=== PATIENT | female | born 1950 | race Caucasian/White ===

== ENCOUNTER 2018-11-14 13:59 | Emergency (ER) | payer MEDICARE ==
[~2018-11-14] VITALS: Ht 160 cm; Wt 99.8 kg
[~2018-11-14 13:59] MED LIST: BUME2 PO; CYCL10; FLUR100; GLIM2 PO; GLYMET5; LORA1; LOSA50 PO; LOSHYD; META800; OXYACE10; PARO10 PO; PARO20; PIOG30; POTCHL20ER PO; PRAV20 PO; RAMI5
[2018-11-14] MEDS ORDERED: OMEPRAZOLE MAGN20 MG PO (15:24)
[2018-11-14] MEDS ORDERED: CYAN500 PO (15:32)
[2018-11-14] MEDS ORDERED: VITAMIN D35000 UNI1 PO (15:34)
[2018-11-14] MEDS ORDERED: Co Q-10300 MG PO (15:35)
[2018-11-14] MEDS ORDERED: CALCIUM CITRAT1 EAC4 PO (15:36)
[2018-11-14] MEDS ORDERED: THERA1 EACH PO (15:37)
[2018-11-14 16:25] LABS: BASOPHILS ABSOLUTE AUTO 0.02 K/mm3 (0.00-0.23); BASOPHILS PERCENT AUTO 0 % (0-2); EOSINOPHILS PERCENT AUTO 0 % (0-6); Hematocrit 37.9 % (33.0-51.0); Hemoglobin 12.1 g/dL (11.5-16.0); IMMATURE GRAN ABSOLUTE AUTO 0.09 K/mm3 (0.00-0.10); IMMATURE GRAN PERCENT AUTO 1 % (0-1); LYMPHOCYTES ABSOLUTE AUTO 1.18 K/mm3 (0.84-5.20); LYMPHOCYTES PERCENT AUTO 10 % (21-46); MONOCYTES ABSOLUTE AUTO 0.38 K/mm3 (0.16-1.47); MONOCYTES PERCENT AUTO 3 % (4-13); Mean Corpuscular HGB 31.3 pg (26.0-34.0); Mean Corpuscular HGB Conc 31.9 g/dL (31.5-36.5); Mean Corpuscular Volume 98 fL (80-100); Mean Platelet Volume 10.3 fL (9.1-12.4); NEUTROPHILS ABSOLUTE AUTO 9.79 K/mm3 (1.96-9.15); NEUTROPHILS PERCENT AUTO 85 % (41-73); Platelet Count 397 K/mm3 (150-400); RDW Coefficient Variation 12.8 % (11.7-14.2); RDW Standard Deviation 45.5 fL (35.1-46.3); Red Blood Cell Count 3.87 M/mm3 (3.80-5.20); White Blood Cell Count 11.46 K/mm3 (4.00-11.30)
[2018-11-14 16:35] LABS: Source, Urine Clean Catch
[2018-11-14 16:40] LABS: Bilirubin, Urine Neg (Neg); Blood, Urine Neg (Neg); Glucose Qualitative, Urine Neg (Neg); Ketones, Urine Neg (Neg); Leukocyte Esterase, Urine 1+ (Neg); Nitrite, Urine Neg (Neg); Protein, Urine Neg (Neg); Urobilinogen, Urine NORM (Normal)
[2018-11-14 16:45] LABS: Albumin, Blood 3.7 g/dL (3.4-5.0); Albumin/Globulin Ratio 0.9 (0.8-1.8); Bilirubin, Total 0.2 mg/dL (0.1-1.0); Calcium, Blood 9.1 mg/dL (8.5-10.1); Creatinine, Blood 1.12 mg/dL (0.40-1.00); Globulin, Blood 4.2 g/dL (2.2-4.0); Potassium, Blood 4.4 mmol/L (3.5-5.5); Total Protein, Blood 7.9 g/dL (6.4-8.2)
[2018-11-14 16:48] LABS: Appearance, Urine Clear (Clear); Color, Urine Yellow (P-Yellow)
[2018-11-14 16:54] LABS: Bacteria Few /hpf; Red Blood Cells, Urine 0-2 /hpf (0-2); Squamous Epithelial Cells Few /hpf (Few); White Blood Cells, Urine 0-2 /hpf (0-5)
== END 2018-11-14 18:30 | disposition home or self-care (01) ==
LOC: ER 13:59
PROVIDERS: Physician Assistant
DX: M43.17 Spondylolisthesis, lumbosacral region (principal); M51.16 Intervertebral disc disorders with radiculopathy, lumbar region; N39.498 Other specified urinary incontinence; I10 Essential (primary) hypertension; E11.9 Type 2 diabetes mellitus without complications; Z79.899 Other long term (current) drug therapy
CPT/HCPCS: 72148; 80053; 81001; 85025; 87086; 96374; 99284-25; J2060

== ENCOUNTER 2019-02-01 18:20 | Emergency (ER) | payer MEDICARE ==
[~2019-02-01] VITALS: Ht 162.6 cm; Wt 81.7 kg
[~2019-02-01 18:20] MED LIST changes: +CALCIUM CITRAT1 EAC4 PO; +CYAN500 PO; +Co Q-10300 MG PO; +OMEPRAZOLE MAGN20 MG PO; +THERA1 EACH PO; +VITAMIN D35000 UNI1 PO
== END 2019-02-01 20:45 | disposition home or self-care (01) ==
LOC: ER 18:20
DX: S02.2XXA Fracture of nasal bones, initial encounter for closed fracture (principal); S01.511A Laceration without foreign body of lip, initial encounter; I10 Essential (primary) hypertension; E11.9 Type 2 diabetes mellitus without complications; E78.00 Pure hypercholesterolemia, unspecified; Z88.6 Allergy status to analgesic agent; Z79.899 Other long term (current) drug therapy; Z87.891 Personal history of nicotine dependence; W01.0XXA Fall on same level from slipping, tripping and stumbling without subsequent striking against object, initial encounter
CPT/HCPCS: 12011; 70450; 70486; 73140; 90471; 90714; 99283-25

== ENCOUNTER → 2020-07-19 | Outpatient (CLI) | payer MEDICARE ==
[2020-07-19 12:05] LABS: Uric Acid, Urine 22.9 mg/dL (7.5-49.5)
== END | disposition home or self-care (01) ==
LOC: LAB SHORT 07:40 → LAB 07:40
PROVIDERS: General Practice
DX: M10.9 Gout, unspecified (principal)
CPT/HCPCS: 81050; 84560

== ENCOUNTER 2021-07-19 09:28 | Day surgery (SDC) | payer MEDICARE ==
[~2021-07-19] VITALS: Ht 160 cm; Wt 92.7 kg
[2021-07-19] MEDS ORDERED: Norco 10-325 T1 EACH (10:35)
[2021-07-19] MEDS ORDERED: TRULICITY0.75 MG/01 SQ (10:37)
--- NOTE | 2021-07-19 11:24 | NUR ---
07/19/21 1124 Yara Brand 1 MG EPI ADDED TO EACH OF THE FIRST 3 BAGS OF LR FOR IRRIGATION PER ORDER.
--- NOTE | 2021-07-19 12:46 | NUR ---
07/19/21 1246 Cecilia Araya UPON ENTERING STEP DOWN PT STATES SHE NEEDED TO USE THE RESTROOM. STATES SHE WAS CONSTIPATED PRIOR TO THE PROCEEDURE AND IS FEELING UNCOMFORTABLE.
== END 2021-07-19 13:21 | disposition home or self-care (01) ==
LOC: ORSCSDS 09:28
PROVIDERS: Orthopaedic Surgery
PROC: 0LS34ZZ Reposition Right Upper Arm Tendon, Percutaneous Endoscopic Approach (ICD-10-PCS; principal; 2021-07-19 11:30)
PROC: 0LM14ZZ Reattachment of Right Shoulder Tendon, Percutaneous Endoscopic Approach (ICD-10-PCS; principal; 2021-07-19 11:30)
PROC: 0RNJ4ZZ Release Right Shoulder Joint, Percutaneous Endoscopic Approach (ICD-10-PCS; principal; 2021-07-19 11:30)
DX: M75.121 Complete rotator cuff tear or rupture of right shoulder, not specified as traumatic (principal); M75.21 Bicipital tendinitis, right shoulder; M75.41 Impingement syndrome of right shoulder; E11.9 Type 2 diabetes mellitus without complications; E66.01 Morbid (severe) obesity due to excess calories; Z68.36 Body mass index [BMI] 36.0-36.9, adult; F32.A Depression, unspecified; Z87.891 Personal history of nicotine dependence; G47.33 Obstructive sleep apnea (adult) (pediatric); J45.909 Unspecified asthma, uncomplicated; K76.0 Fatty (change of) liver, not elsewhere classified; I10 Essential (primary) hypertension; E78.00 Pure hypercholesterolemia, unspecified; Z79.899 Other long term (current) drug therapy
CPT/HCPCS: 82947; C1713; J0171; J0690; J1100; J2250; J2405; J2704; J3010; J7120

== ENCOUNTER → 2021-12-19 | Outpatient (CLI) | payer MEDICARE ==
[~2021-12-19] MED LIST changes: +Norco 10-325 T1 EACH; +TRULICITY0.75 MG/01 SQ
== END | disposition home or self-care (01) ==
LOC: PLD 11:12 → LAB SHORT 11:12
DX: D22.4 Melanocytic nevi of scalp and neck (principal)
CPT/HCPCS: 88305

== ENCOUNTER 2024-01-02 11:22 | Day surgery (SDC) | payer MEDICARE ==
[~2024-01-02] VITALS: Ht 160 cm; Wt 93.8 kg
[~2024-01-02 11:22] MED LIST changes: +Lactated Ringer's 1,000 ML IV ONE
[2024-01-02] MEDS ORDERED: ZEBUTAL 50-3251 EAC1 (11:38)
[2024-01-02] MEDS ORDERED: ESCI10 (11:38)
[2024-01-02] MEDS ORDERED: Lactated Ringer's 1,000 ML IV ONE (12:25)
[2024-01-02] MEDS ORDERED: propofoL 50 ML IV ONE (12:35)
[2024-01-02 13:27] VITALS: BP 110/63
== END 2024-01-02 13:28 | disposition home or self-care (01) ==
LOC: ORSCSDS 11:22
PROVIDERS: Internal Medicine Gastroenterology
PROC: 0DJD8ZZ Inspection of Lower Intestinal Tract, Via Natural or Artificial Opening Endoscopic (ICD-10-PCS; principal; 2024-01-02 12:45)
DX: K62.5 Hemorrhage of anus and rectum (principal); Z86.010 Personal history of colon polyps; I10 Essential (primary) hypertension; E11.9 Type 2 diabetes mellitus without complications; K76.0 Fatty (change of) liver, not elsewhere classified; G47.30 Sleep apnea, unspecified; Z87.11 Personal history of peptic ulcer disease; E78.5 Hyperlipidemia, unspecified; G62.9 Polyneuropathy, unspecified; F32.A Depression, unspecified; K21.9 Gastro-esophageal reflux disease without esophagitis; Z98.84 Bariatric surgery status; E66.9 Obesity, unspecified; Z68.36 Body mass index [BMI] 36.0-36.9, adult; Z87.891 Personal history of nicotine dependence; Z79.899 Other long term (current) drug therapy
CPT/HCPCS: 82947; J2704; J7120

== ENCOUNTER → 2024-04-15 | Outpatient (CLI) | payer MEDICARE ==
[~2024-04-15] MED LIST changes: +ESCI10; -Lactated Ringer's 1,000 ML IV ONE; +ZEBUTAL 50-3251 EAC1
[2024-04-15 13:03] LABS: BASOPHILS ABSOLUTE AUTO 0.05 K/mm3 (0.00-0.23); BASOPHILS PERCENT AUTO 1 % (0-2); EOSINOPHILS ABSOLUTE AUTO 0.14 K/mm3 (0.00-0.68); EOSINOPHILS PERCENT AUTO 2 % (0-6); Hematocrit 34.8 % (33.0-51.0); Hemoglobin 11.7 g/dL (11.5-16.0); IMMATURE GRAN ABSOLUTE AUTO 0.04 K/mm3 (0.00-0.10); IMMATURE GRAN PERCENT AUTO 0 % (0-1); LYMPHOCYTES ABSOLUTE AUTO 2.48 K/mm3 (0.84-5.20); LYMPHOCYTES PERCENT AUTO 28 % (21-46); MONOCYTES ABSOLUTE AUTO 0.73 K/mm3 (0.16-1.47); MONOCYTES PERCENT AUTO 8 % (4-13); Mean Corpuscular HGB 31.3 pg (26.0-34.0); Mean Corpuscular HGB Conc 33.6 g/dL (31.5-36.5); Mean Corpuscular Volume 93 fL (80-100); Mean Platelet Volume 10.5 fL (9.1-12.4); NEUTROPHILS ABSOLUTE AUTO 5.47 K/mm3 (1.96-9.15); NEUTROPHILS PERCENT AUTO 61 % (41-73); Platelet Count 415 K/mm3 (150-400); RDW Coefficient Variation 13.2 % (11.7-14.2); RDW Standard Deviation 45.1 fL (35.1-46.3); Red Blood Cell Count 3.74 M/mm3 (3.80-5.20); White Blood Cell Count 8.91 K/mm3 (4.00-11.30)
[2024-04-15 13:25] LABS: Bun/Creatinine Ratio 22.9 (12.0-20.0); Calcium, Blood 9.5 mg/dL (8.5-10.1); Creatinine, Blood 1.09 mg/dL (0.40-1.00); Magnesium, Blood 2.1 mg/dL (1.6-2.4); Potassium, Blood 4.2 mmol/L (3.5-5.5); Thyroid Stimulating Hormone 3.075 uIU/mL (0.360-4.800)
== END | disposition home or self-care (01) ==
LOC: LAB SHORT 12:59 → LAB 12:59
PROVIDERS: Physician Assistant Medical
DX: I48.91 Unspecified atrial fibrillation (principal); R53.83 Other fatigue
CPT/HCPCS: 80048; 83735; 84443; 84484; 85025

== ENCOUNTER 2024-05-10 10:56 | Emergency (ER) | payer MEDICARE ==
[~2024-05-10] VITALS: Ht 165.1 cm; Wt 90.7 kg
[2024-05-10 11:08] VITALS: BP 177/49
[2024-05-10] MEDS ORDERED: Methocarbamol 500 MG Tab PO ONE (11:30)
[2024-05-10] MEDS ORDERED: Gabapentin 300 MG Cap PO ONE (11:30)
[2024-05-10] MEDS ORDERED: Neurontin 300300 MG PO (11:53)
[2024-05-10] MEDS ORDERED: Robaxin750 MG PO (11:53)
== END 2024-05-10 12:00 ==
LOC: ER 10:56
DX: M54.42 Lumbago with sciatica, left side (principal); Z88.6 Allergy status to analgesic agent; Z88.5 Allergy status to narcotic agent; Z79.899 Other long term (current) drug therapy; I10 Essential (primary) hypertension; E11.9 Type 2 diabetes mellitus without complications; Z87.891 Personal history of nicotine dependence
CPT/HCPCS: 99282; A9270